=== PATIENT | male | born 1985 ===

== ENCOUNTER 2016-08-28 07:30 | Emergency (ER) | payer OTHER ==
--- NOTE | 2016-08-28 08:37 | UC ---
Júnior Nash Benjamin, scribed for Paulino Leon MD on 08/28/16 at 0817 . HPI Febrile Illness - HPI Summary HPI Summary: 31yo male c/o fever of 103.5F, low back pain that radiates towards his groin area, and swollen right gland on his neck since 2 days ago. Pt denies any rashes. Started initially as a sore throat, then started to develop with fever/ chills, and back and groin pain. 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 Denies burning sensation while urination, dizziness, or any abdominal pain. Pt doesn't take any medications for any chronic conditions. - History of Current Complaint Chief Complaint: UCGeneralIllness Time Seen by Provider: 08/28/16 07:34 Hx Obtained From: Patient, Family/Refund Specialist - Onset/Duration: Started Days Ago - 2 days ago, Still Present Timing: Constant Initial Severity: Moderate Current Severity: Moderate Pain Intensity: 7 Pain Scale Used: 0-10 Numeric Associated Signs and Symptoms: Other: - back pain, groin pain, swollen glands - Allergy/Home Medications Allergies/Adverse Reactions: Allergies Allergy/AdvReac Type Severity Reaction Status Date / Time No Known Allergies Allergy Verified 08/28/16 07:37 Home Medications: Home Medications Adfhrecdhemnt-Fwrkxuyabu-Igivm [Nyquil Severe Cold/Flu 5-6.25-10-325 mg/15Ml] 1 liq PO DAILY PRN 08/28/16 [History Confirmed 08/28/16] PMH/Surg Hx/FS Hx/Imm Hx Previously Healthy: Yes Infectious Disease History: No Infectious Disease History: Denies: Traveled Outside the [place] in Last 30 Days - Family History Known Family History: Negative: Cardiac Disease, Hypertension - Social History Occupation: Employed Full-time Lives: With Family Alcohol Use: None Substance Use Type: Reports: None Smoking Status (MU): Never Smoked Tobacco Review of Systems Constitutional: Fever Skin: Negative Eyes: Negative ENT: Sore Throat Respiratory: Negative Cardiovascular: Negative Gastrointestinal: Negative Genitourinary: Other - Groin pain Motor: Negative Neurovascular: Negative Musculoskeletal: Other: - back pain Neurological: Negative Psychological: Negative All Other Systems Reviewed And Are Negative: Yes Physical Exam Triage Information Reviewed: Yes Appearance: Ill-Appearing, Pain Distress Vital Signs: Initial Vital Signs Temp 100.0 F 08/28/16 07:38 Pulse 100 08/28/16 07:38 Resp 18 08/28/16 07:38 BP 125/82 08/28/16 07:38 Pulse Ox 99 08/28/16 07:38 Eyes: Positive: Conjunctiva Clear ENT: Positive: Pharyngeal erythema Neck: Positive: Enlarged Nodes @ - tender bilateral neck Cardiovascular: Positive: RRR. Negative: No Murmur Abdomen Description: Positive: Nontender, CVA Tenderness (R), CVA Tenderness (L) Musculoskeletal: Positive: Strength Intact Psychological Exam: Normal Skin Exam: Normal Course/Dx - Course Course Of Treatment: 31 yr old with sore throat, swollen glands, back pain, fever, groin pain. DW Dr Solomon in the ER. I believe he needs labs, possible imaging of back and at the least symptomatic treatment and reeval before just calling this a simple case of strep pharyngitis. The patient refuses trasport by ambulance to the ER. He signed out AMA with refusal of transport to the ER. He verbalized he may go with his to the ER. - Diagnoses Clinic Provider Diagnoses: Sore throat, back pain, Strep throat, groin pain. - Provider Notifications Discussed Patient Care With: Dr Solomon Time Discussed With Above Provider: 08:24 Discharge - Discharge Plan Condition: Good Disposition: AGAINST MEDICAL ADVICE Referrals: No Primary Care Phys,NOPCP [Primary Care Provider] - The documentation as recorded by the Júnior estrada Benjamin accurately reflects the service I personally performed and the decisions made by me, Paulino Leon MD.
[2016-08-28 08:47] VITALS: BP 128/80
== END 2016-08-28 08:45 | disposition left against medical advice (07) ==
LOC: UCEAST 07:30
DX: J02.0 Streptococcal pharyngitis (principal); M54.5 Low back pain; R10.30 Lower abdominal pain, unspecified
CPT/HCPCS: 81003; 87651; 99202; G0463

== ENCOUNTER 2016-08-28 09:09 | Emergency (ER) | payer OTHER ==
[2016-08-28 09:55] LABS: Hematocrit 40 % (42-52); Hemoglobin 13.6 g/dl (14.0-18.0); Mean Corpuscular HGB Conc 34 g/dl (31-36); Mean Corpuscular Hemoglobin 28 pg (27-31); Mean Corpuscular Volume 83 fL (80-94); Mean Platelet Volume 8 um3 (7.4-10.4); Red Blood Count 4.84 10^6/ul (4.0-5.4); Red Cell Distribution Width 13 % (10.5-15); White Blood Count 14.4 10^3/ul (3.5-10.8)
[2016-08-28 09:58] LABS: Urine Bacteria Absent (Absent); Urine Bilirubin Negative (Negative); Urine Glucose Negative (Negative); Urine Nitrite Negative (Negative)
[2016-08-28 10:07] LABS: Albumin 3.7 g/dL (3.2-5.2); BUN/Creatinine Ratio 10.4 (8-20); Calcium 8.9 mg/dL (8.6-10.3); EGFR African American 94.2 (>60); EGFR Non-African American 73.2 (>60); Globulin 3.3 g/dL (2-4); Potassium 3.6 mmol/L (3.5-5.0)
[2016-08-28] MEDS ORDERED: Penicillin G Benzathine 1.2MU* 1,200,000 UNITS/2 ML SYR IM ONE (10:27)
[2016-08-28] MEDS ORDERED: Ibuprofen TAB* 800 MG PO ONE (10:29)
--- NOTE | 2016-08-28 10:34 | ED ---
Throat Pain/Nasal Congestion - HPI Summary HPI Summary: 31 male presents from urgent care with complaints of sore throat, fever and low back pain that began Thursday night and has progressively seemed to worsen. He also complains of swollen glands and a headache. Has taken his temperature and highest was 103F. Patient has been taking Nyquil at home with last dose being last night. Has not taken any medication today. Denies nausea, vomiting, difficulty breathing, chest pain, difficulty swallowing, abdominal pain, bladder bowel incontinence, saddle anesthesia, numbness/tingling, visual changes and photophobia. Denies any known sick contacts. Admits to nasal congestion. Denies cough. LBM yesterday. No urinary or genitalia symptoms. No recent trauma or injury. - History of Current Complaint Chief Complaint: EDFluSymptoms Time Seen by Provider: 08/28/16 09:19 Hx Obtained From: Patient Onset/Duration: Sudden Onset, Lasting Days, Still Present, Worse Since Severity: Mild Associated Signs And Symptoms: Positive: Dysphagia Cough: None - Epiglottits Risk Factors Epiglottis Risk Factors: Negative - Allergies/Home Medications Allergies/Adverse Reactions: Allergies Allergy/AdvReac Type Severity Reaction Status Date / Time No Known Allergies Allergy Verified 08/28/16 07:37 PMH/Surg Hx/FS Hx/Imm Hx Endocrine/Hematology History: Denies: Hx Anemia Cardiovascular History: Denies: Hx Hypertension Respiratory History: Denies: Hx Asthma - Surgical History Surgery Procedure, Year, and Place: none - Immunization History Date of Tetanus Vaccine: UTD Date of Influenza Vaccine: NO Immunizations Up to Date: Yes Infectious Disease History: No Infectious Disease History: Denies: Traveled Outside the [place] in Last 30 Days - Family History Known Family History: Negative: Cardiac Disease, Hypertension - Social History Alcohol Use: None Substance Use Type: Reports: None Smoking Status (MU): Never Smoked Tobacco Review of Systems Positive: Fever, Chills, Fatigue Eyes: Negative Positive: Sore Throat, Nasal Discharge Cardiovascular: Negative Respiratory: Negative Gastrointestinal: Negative Genitourinary: Negative Positive: Myalgia Skin: Negative Positive: Headache Psychological: Normal All Other Systems Reviewed And Are Negative: Yes Physical Exam Triage Information Reviewed: Yes Vital Signs On Initial Exam: Initial Vitals Temp Pulse Resp BP Pulse Ox 101.7 F 104 26 128/77 100 08/28/16 09:11 08/28/16 09:11 08/28/16 09:11 08/28/16 09:11 08/28/16 09:11 temp and tachycardia noted Vital Signs Reviewed: Yes Appearance: Positive: No Pain Distress, Well-Nourished, Ill-Appearing Skin: Positive: Warm - hot to touch, Skin Color Reflects Adequate Perfusion, Dry Head/Face: Positive: Normal Head/Face Inspection Eyes: Positive: Normal, EOMI, ALEJANDRA, Conjunctiva Clear ENT: Positive: Normal ENT inspection, Hearing grossly normal, Pharyngeal erythema, Nasal congestion, TMs normal, Tonsillar swelling, Tonsillar exudate, Other - airway patent and uvula midline. no sign of epiglottits or peritonsillar abscess at this time.. Negative: Nasal drainage, Trismus, Muffled /hoarse voice Dental: Positive: Cervical Lymphadenopathy. Negative: Percussion Tenderness @ Neck: Positive: Supple, Nontender - some mild tenderness on palpation of lymph nodes, Enlarged Nodes @. Negative: Nuchal Rigidity, Tenderness @ Respiratory/Lung Sounds: Positive: Clear to Auscultation, Breath Sounds Present. Negative: Rales, Rhonchi, Stridor, Tracheal Deviation, Wheezes Cardiovascular: Positive: Normal, RRR, Pulses are Symmetrical in both Upper and Lower Extremities Abdomen Description: Positive: Nontender, No Organomegaly, Soft. Negative: Bruit, CVA Tenderness (L), Distended, Hepatomegaly, Peritoneal Signs Bowel Sounds: Positive: Present Male Genital Exam: Positive: normal genitalia - per patient Musculoskeletal: Positive: Normal, Strength/ROM Intact, Pain @ - diffuse low back and b/l LE described as dull and aching, constant. No localization and no signs of trauma. Neurological: Positive: Normal, Sensory/Motor Intact, Alert, Oriented to Person Place, Time, CN Intact II-III, Reflexes Intact, NV Bundle Intact Distally, Normal Gait, Speech Normal Psychiatric: Positive: Normal AVPU Assessment: Alert - Kofi Coma Scale Best Eye Response: 4 - Spontaneous Best Motor Response: 6 - Obeys Commands Best Verbal Response: 5 - Oriented Coma Scale Total: 15 Diagnostics - Vital Signs Vital Signs Temp Pulse Resp BP Pulse Ox 08/28/16 09:33 99 97 08/28/16 09:31 121/66 08/28/16 09:30 101.5 F 102 22 121/66 97 08/28/16 09:11 101.7 F 104 26 128/77 100 - Laboratory Lab Results: Lab Results 08/28/16 08/28/16 08/28/16 Range/Units 09:48 09:48 09:48 WBC 14.4 H (3.5-10.8) 10^3/ul RBC 4.84 (4.0-5.4) 10^6/ul Hgb 13.6 L (14.0-18.0) g/dl Hct 40 L (42-52) % MCV 83 (80-94) fL MCH 28 (27-31) pg MCHC 34 (31-36) g/dl RDW 13 (10.5-15) % Plt Count 188 (150-450) 10^3/ul MPV 8 (7.4-10.4) um3 Sodium 132 L (133-145) mmol/L Potassium 3.6 (3.5-5.0) mmol/L Chloride 100 L (101-111) mmol/L Carbon Dioxide 21 L (22-32) mmol/L Anion Gap 11 (2-11) mmol/L BUN 12 (6-24) mg/dL Creatinine 1.15 (0.67-1.17) mg/dL Est GFR ( Amer) 94.2 (>60) Est GFR (Non-Af Amer) 73.2 (>60) BUN/Creatinine Ratio 10.4 (8-20) Glucose 149 H (70-100) mg/dL Calcium 8.9 (8.6-10.3) mg/dL Total Bilirubin 1.00 (0.2-1.0) mg/dL AST 75 H (13-39) U/L ALT 130 H (7-52) U/L Alkaline Phosphatase 83 (34-104) U/L Total Protein 7.0 (6.4-8.9) g/dL Albumin 3.7 (3.2-5.2) g/dL Globulin 3.3 (2-4) g/dL Albumin/Globulin Ratio 1.1 (1-3) Urine Color Yellow Urine Appearance Clear Urine pH 8.0 (5-9) Ur Specific [place] 1.018 (1.010-1.030) Urine Protein 1+(30 mg/dl) H (Negative) Urine Ketones Trace H (Negative) Urine Blood Negative (Negative) Urine Nitrate Negative (Negative) Urine Bilirubin Negative (Negative) Urine Urobilinogen Positive H (Negative) Ur Leukocyte Esterase Negative (Negative) Urine WBC (Auto) Trace(0-5/hpf) (Absent) Urine RBC (Auto) Trace(0-2/hpf) (Absent) Urine Bacteria Absent (Absent) Urine Glucose Negative (Negative) Result Diagrams: 08/28/16 09:48 08/28/16 09:48 Lab Statement: Any lab studies that have been ordered have been reviewed, and results considered in the medical decision making process. Re-Evaluation - Re-Evaluation First Eval Re-Evaluation Time: 11:00 Change: Improved - feeling some relief. medications only administered ~20 minutes ago. EENT Course/Dx - Course Course Of Treatment: labs and urinalysis ordered. Patient was sent over from with positive strep culture. With normal lab values besides WBC elevation due to infection and elevated liver enzymes all were unremarkable. Hepatitis panel was ordered due to Urobilinogen and AST/ALT elevation. Patient also may have a hemolytic blood disorder educated to further be worked up by a primary care provider. Given ibuprofen 800mg for pain and fever. Given bicillin for infection while in ED. Patient was feeling better. Due to lab results, PE findings and HPI further imaging or work-up did not seem appropriate at this time. Aware of worsening signs and symptoms. Told to return if new symptoms develop or do not improve. Fluids, alternate tylenol/iburpofen and rest. Follow- up. - Differential Diagnoses Differential Diagnoses: Influenza, Pharyngitis, Sinusitis, URI/Bronchitis, Other - Diagnoses Provider Diagnoses: Acute streptococcal pharyngitis Discharge - Discharge Plan Condition: Stable Disposition: HOME Prescriptions: Ibuprofen TAB* [Motrin TAB* 800 MG] 800 mg PO Q6H #30 tab Patient Education Materials: Strep Throat (ED) Forms: *Work Release Referrals: No Primary Care Phys,NOPCP [Primary Care Provider] - [facility] [place] [facility]FERR[facility] [Outside] Additional Instructions: Take prescribed Ibuprofen every 6 hours as needed for pain and fever. Alternate it with Tylenol (acetaminophen) for fever. Rest and drink plenty of fluids. Swishing with salt water is also recommended. The medication you received in the ER will treat your infection without additional doses. If your symptoms do not improve or worsen please return. Follow up with PCP.
[2016-08-28 11:28] VITALS: BP 116/78
== END 2016-08-28 11:24 | disposition home or self-care (01) ==
LOC: ED 09:09
DX: J02.0 Streptococcal pharyngitis (principal)
CPT/HCPCS: 36415; 80053; 80074; 81003; 81015; 85027; 99282; A9270-GY; J0558